=== PATIENT | male | born 1970 | race Caucasian/White ===

== ENCOUNTER 2016-10-11 19:36 | Emergency (ER) | payer BC ==
[2016-10-11 19:43] VITALS: BP 134/94; PULSE 98; TEMP 98.7; BMI 41.8
--- NOTE | 2016-10-11 19:49 | PDOC ---
History of Present Illness - General History Source: Patient Exam Limitations: No Limitations - History of Present Illness Initial Comments: 10/11/16 21:16 The patient is a 46 year old male, with a significant past medical history of gallstones, who presents to the emergency department with swelling in his left testicle and urinary urgency for the past two days. The patient reports that 2 days ago when he was urinating he felt that he could not empty his bladder and felt a pressure and bloating sensation in his suprapubic region. He states that he felt that his urine stream was blocked and sprayed in many different directions. He reports that yesterday he noticed that his left testicle was swollen and painful. The patient does note that the pain subsided last night but returned today at 2pm which prompted him to come into the emergency department. He denies any discharge from his penis. He denies chest pain, shortness of breath, headache and dizziness. He denies fever, chills, nausea, vomit, diarrhea and constipation. He denies dysuria and hematuria. PMH: chronic bronchitis, asthma, pneumonia Allergies: Penicillins Social history: Former smoker (quit 2.5 years ago) PCP: Dr. Rigoberto Lyman <Rebeca Nguyen - Last Filed: 10/11/16 21:16> <An Tan - Last Filed: 10/12/16 01:21> - General Chief Complaint: Edema Stated Complaint: TESTICULAR SWELLING Time Seen by Provider: 10/11/16 19:43 Past History <Rebeca Nguyen - Last Filed: 10/11/16 21:16> - Past Medical History Asthma: Yes (chronic bronchitis) COPD: Yes - Immunization History Immunization Up to Date: Yes - Psycho/Social/Smoking Cessation Hx Anxiety: No Suicidal Ideation: No Smoking Status: No Smoking History: Former smoker Have you smoked in the past 12 months: No Number of Cigarettes Smoked Daily: 2 Information on smoking cessation initiated: No Hx Alcohol Use: No Drug/Substance Use Hx: No Substance Use Type: Alcohol <An Tan - Last Filed: 10/12/16 01:21> - Past Medical History Allergies/Adverse Reactions: Allergies Allergy/AdvReac Type Severity Reaction Status Date / Time Penicillins AdvReac Mild Hives Verified 02/06/16 15:25 Home Medications: Ambulatory Orders Levofloxacin [Levaquin -] 500 mg PO DAILY #10 tablet 10/11/16 Rosuvastatin Calcium [Crestor] 10 mg PO DAILY 10/11/16 Review of Systems - Review of Systems Able to Perform ROS?: Yes Comments:: 10/11/16 21:16 CONSTITUTIONAL: Absent: fever, no chills, no fatigue EYES: Absent: visual changes ENT: Absent: ear pain, no sore throat CARDIOVASCULAR: Absent: chest pain, no palpitations RESPIRATORY: Absent: cough, no SOB GI:+pain and tenderness in abdomen Absent: abdominal pain, no nausea, no vomiting, no constipation, no diarrhea GENITOURINARY:+Urgency, +urinary pressure, +pain and swelling in left testicle Absent: dysuria, no frequency, no hematuria MUSCULOSKELETAL: Absent: back pain, no arthralgia, no myalgia SKIN: Absent: rash <Rebeca Nguyen - Last Filed: 10/11/16 21:16> *Physical Exam - Vital Signs Last Vital Signs Temp Pulse Resp BP Pulse Ox 98.7 F 98 H 18 134/94 100 10/11/16 19:41 10/11/16 19:41 10/11/16 19:41 10/11/16 19:41 10/11/16 19:41 - Physical Exam Comments: 10/11/16 21:17 GENERAL: The patient is awake, alert, and fully oriented, in no acute distress. HEAD: Normal with no signs of trauma. EYES: Pupils equal, round and reactive to light, extraocular movements intact, sclera anicteric, conjunctiva clear with no pallor. ENT: Ears normal, nares patent, oropharynx clear without exudates. Moist mucous membranes. NECK: Normal range of motion, supple without lymphadenopathy, JVD, or masses. LUNGS: Breath sounds equal, clear to auscultation bilaterally. No wheeze/ crackles. HEART: Regular rate and rhythm, normal S1 and S2 without murmur or rub. ABDOMEN: +Mild tenderness of the left lower quadrant without peritoneal signs or mass. +Mild supropublic tenderness BS wnl. No guarding or rebound. No palpable masses. No hepatosplenomegaly. EXTREMITIES: Normal range of motion, no edema. No clubbing or cyanosis. No cords, erythema, or tenderness. : Mild edema of the left side of the scrotum with tenderness of the testicle and epididymis without masses palpated. No penile lesions or urethral discharge evident. NEUROLOGICAL: Cranial nerves II through XII grossly intact. Normal speech, normal gait. PSYCH: Normal mood, normal affect. SKIN: Warm, Dry, normal turgor, no rashes or lesions noted. <Rebeca Nguyen - Last Filed: 10/11/16 21:16> - Vital Signs Last Vital Signs Temp Pulse Resp BP Pulse Ox 98.7 F 98 H 18 134/94 100 10/11/16 19:41 10/11/16 19:41 10/11/16 19:41 10/11/16 19:41 10/11/16 19:41 <An Tan - Last Filed: 10/12/16 01:21> ED Treatment Course - ADDITIONAL ORDERS Additional order review: Laboratory Results 10/11/16 20:18 Urine Color Yellow Urine Appearance Clear Urine pH 6.0 Ur Specific [place] 1.025 Urine Protein Negative Urine Glucose (UA) Negative Urine Ketones Negative Urine Blood Negative Urine Nitrite Negative Urine Bilirubin Negative Urine Urobilinogen 0.2 e.u/dl Ur Leukocyte Esterase Negative <Rebeca Nguyen - Last Filed: 10/11/16 21:16> Progress Note - Progress Note Progress Note: Documentation has been prepared under my direction and personally reviewed by me in its entirety. I attest that this documented accurately reflects all work, treatment, procedures and medical decision making performed by me. <An Tan - Last Filed: 10/12/16 01:21> Medical Decision Making - Medical Decision Making As noted above, this 46-year-old man presents with a few day history of progressive left-sided scrotal edema and tenderness. Patient has had a history of urinary frequency but no dysuria. There has not been hematuria or urethral discharge. No history of renal stone/STDs/previous scrotal pain or swelling. Exam shows marked tenderness of the epididymis on the left side. Ultrasound performed to rule out torsion. Ultrasound shows evidence of acute epididymitis on the left side without significant other pathology. Urinalysis shows no abnormality. Patient will be treated with Levaquin 500 mg for 10 days by mouth with first dose being given here in the emergency room Motrin 600 mg given for pain relief Patient will be discharged with instructions to return to the emergency room if swelling/pain worsens or if he develops fever. Meanwhile, he will continue Levaquin for full 10 days. He should plan to follow-up with urologist within the next several days. <An Tan - Last Filed: 10/12/16 01:21> *DC/Admit/Observation/Transfer - Attestations Scribe Attestion: 10/11/16 21:17 Documentation prepared by NAIMA Carr, acting as certified medical dosimetrist for An Tan MD. <Rebeca Nguyen - Last Filed: 10/11/16 21:16> <An Tan - Last Filed: 10/12/16 01:21> Diagnosis at time of Disposition: Epididymitis, left - Discharge Dispostion Disposition: HOME Condition at time of disposition: Stable - Prescriptions Prescriptions: Levofloxacin [Levaquin -] 500 mg PO DAILY #10 tablet - Referrals Referrals: Rigoberto Murcia MD [Primary Care Provider] - Gary Gallagher MD [Staff Physician] - - Patient Instructions Printed Discharge Instructions: DI for Epididymitis Additional Instructions: drink plenty of water cool compresses/scrotal elevation ibuprofen/naproxen/acetaminophen as needed for pain Levaquin 500mg daily for 10 days return to ER if pain/swelling worsens or you develop fever followup with urology(Dr. Frost group) within 1 week
[2016-10-11 20:30] LABS: URINE APPEARANCE Clear; URINE BILIRUBIN Negative (NEGATIVE); URINE BLOOD Negative (NEGATIVE); URINE GLUCOSE (UA) Negative (NEGATIVE); URINE KETONE Negative (NEGATIVE); URINE LEUK ESTERASE Negative (NEGATIVE); URINE NITRITE Negative (NEGATIVE); URINE PROTEIN Negative (NEGATIVE); URINE UROBILINOGEN 0.2 E.U/dl (0.2-1.0)
[2016-10-11 20:34] LABS: URINE COLOR YELLOW
[2016-10-11] MEDS ORDERED: IBUPROFEN 600 MG TABLET (FP) PO ONE ×2 (22:38→22:45)
[2016-10-11] MEDS ORDERED: LEVOFLOXACIN 500 MG TABLET (FP) PO ONE (22:38)
[2016-10-11] MEDS ORDERED: LEVOFLOXACIN 500 MG TABLET (FP) ONE (22:45)
== END 2016-10-11 22:48 | disposition home or self-care (01) ==
LOC: FER 19:36
DX: N45.1 Epididymitis (principal); J45.909 Unspecified asthma, uncomplicated; J44.9 Chronic obstructive pulmonary disease, unspecified; Z87.891 Personal history of nicotine dependence
CPT/HCPCS: 76870-TC; 81003; 99281-25

== ENCOUNTER 2016-11-02 16:20 | Emergency (ER) | payer BC ==
[2016-11-02 16:42] VITALS: BMI 41.6
[2016-11-02 17:24] VITALS: BP 124/91; PULSE 109; TEMP 97.9
[2016-11-02] MEDS ORDERED: SODIUM CHLORIDE 0.9% 500 ML INFUS.BAG IV ONE (18:08)
[2016-11-02] MEDS ORDERED: LEVOFLOXACIN 500 MG IVPB 100 ML IVPB ONE ×2 (18:09→18:18)
[2016-11-02] MEDS ORDERED: KETOROLAC TROMETHAMINE 30 MG/1 ML VIAL IVPUSH ONE (18:09)
--- NOTE | 2016-11-02 18:14 | PDOC ---
History of Present Illness <Bebeto Beavers - Last Filed: 11/02/16 21:14> - History of Present Illness Initial Comments: 11/02/16 18:13 46-year-old male with a past medical history of gallstones, and hyperlipidemia, and obesity He was seen in the emergency department on 10/11/16, and was diagnosed with acute epididymitis on the left side, without any other significant pathology He was treated with Levaquin, and his symptoms did resolve 2 days ago however he started developing left testicular pain again, with a slight penile discharge after urination He denies any hematuria He denies any fever or chills, but he states that he did have some sweats last night He did not follow-up with the urologist after his last bout of epididymitis He states that his symptoms today are similar to the prior symptoms except this time is a bit of a discharge which she did not last time He states that he is with his same partner and does not have a new partner, and she just had a "urinary tract infection", but did see her restaurant hourly manager, and had an STD screen which was negative He denies any flank pain He denies any other complaints and the remainder the review of systems is negative <Terri Rincon - Last Filed: 11/04/16 21:47> - General Chief Complaint: Pain, Acute Stated Complaint: LEFT TESTICLE PAIN Time Seen by Provider: 11/02/16 17:24 Past History <Bebeto Beavers - Last Filed: 11/02/16 21:14> - Past Medical History Asthma: Yes (chronic bronchitis) COPD: Yes Disorders: Yes (EPIDIDIMYTIS) - Immunization History Immunization Up to Date: Yes - Psycho/Social/Smoking Cessation Hx Anxiety: No Suicidal Ideation: No Smoking Status: No Smoking History: Former smoker Have you smoked in the past 12 months: No Number of Cigarettes Smoked Daily: 2 Information on smoking cessation initiated: No Hx Alcohol Use: Yes (SOCIAL) Drug/Substance Use Hx: No Substance Use Type: None <Terri Rincon - Last Filed: 11/04/16 21:47> - Past Medical History Allergies/Adverse Reactions: Allergies Allergy/AdvReac Type Severity Reaction Status Date / Time Penicillins Allergy Mild Hives Verified 11/02/16 16:35 Home Medications: Ambulatory Orders Rosuvastatin Calcium [Crestor] 10 mg PO DAILY 10/11/16 Doxycycline Hyclate [Vibratab -] 100 mg PO BID #19 tablet 11/02/16 Liraglutide [Saxenda] 2.4 mg SQ DAILY 11/02/16 Phentermine HCl [Adipex-P] 37.5 mg PO DAILY 11/02/16 *Physical Exam - Vital Signs Last Vital Signs Temp Pulse Resp BP Pulse Ox 97.9 F 109 H 16 124/91 100 11/02/16 16:21 11/02/16 16:21 11/02/16 16:21 11/02/16 16:21 11/02/16 16:21 <Bebeto Beavers - Last Filed: 11/02/16 21:14> - Vital Signs Last Vital Signs Temp Pulse Resp BP Pulse Ox 97.9 F 109 H 16 124/91 100 11/02/16 16:21 11/02/16 16:21 11/02/16 16:21 11/02/16 16:21 11/02/16 16:21 - Physical Exam Comments: 11/02/16 18:17 Physical exam Last Vital Signs Temp Pulse Resp BP Pulse Ox 97.9 F 109 H 16 124/91 100 11/02/16 16:21 11/02/16 16:21 11/02/16 16:21 11/02/16 16:21 11/02/16 16:21 GENERAL: The patient is awake, alert, and fully oriented, and in no apparent distress. HEAD: Normal with no signs of trauma. LUNGS: Breath sounds equal, clear to auscultation bilaterally. No wheezes, and no crackles. HEART: Regular rate and rhythm, normal S1 and S2 without murmur, rub or gallop. ABDOMEN: Soft, normal bowel sounds There is minimal left inguinal tenderness MALE GENITAL EXAM: Circumcised male without obvious penile discharge There is bilateral molluscum contagiosum on the scrotum There is left testicular and left epididymal tenderness There is no right testicular tenderness EXTREMITIES: Normal range of motion, no edema. No clubbing or cyanosis. No cords, erythema, or tenderness. NEUROLOGICAL: Cranial nerves II through XII grossly intact. Normal speech, normal gait. PSYCH: Normal mood, normal affect. SKIN: Warm, Dry, normal turgor, no rashes or lesions noted. <Terri Rincon - Last Filed: 11/04/16 21:47> ED Treatment Course - LABORATORY CBC & Chemistry Diagram: 11/02/16 18:30 11/02/16 18:30 - ADDITIONAL ORDERS Additional order review: Laboratory Results 11/02/16 11/02/16 20:00 18:30 Sodium 139 Potassium 3.8 Chloride 102 Carbon Dioxide 27 Anion Gap 10 BUN 10 Creatinine 0.9 Creat Clearance w eGFR > 60 Random Glucose 87 Calcium 9.6 Total Bilirubin 0.8 AST 23 ALT 32 Alkaline Phosphatase 46 Total Protein 7.7 Albumin 4.6 Urine Color Yellow Urine Appearance Clear Urine pH 5.5 Ur Specific [place] >= 1.030 H Urine Protein 1+ H Urine Glucose (UA) Negative Urine Ketones 1+ H Urine Blood Negative Urine Nitrite Negative Urine Bilirubin Negative Urine Urobilinogen 0.2 e.u/dl Ur Leukocyte Esterase Negative Urine RBC None seen Urine WBC 3-5 Ur Epithelial Cells 0-3 Urine Mucus 2+ 11/02/16 18:30 RBC 5.09 MCV 89.9 MCHC 35.3 RDW 11.2 L MPV 8.9 - Medications Given in the ED: ED Medications Discontinued Medications Generic Name Dose Route Start Last Admin Trade Name Ernestoq PRN Reason Stop Dose Admin Levofloxacin 100 mls @ 100 mls/hr 11/02/16 18:09 11/02/16 18:45 Levaquin 500 Mg Premixed Ivpb - IVPB 11/02/16 19:08 100 mls/hr ONCE ONE Administration Ketorolac Tromethamine 30 mg 11/02/16 18:09 11/02/16 18:30 Toradol Injection - IVPUSH 11/02/16 18:10 30 mg ONCE ONE Administration Sodium Chloride 1,000 ml 11/02/16 18:08 11/02/16 18:30 Normal Saline - IV 11/02/16 18:09 1,000 ml ONCE ONE Administration <Bebeto Beavers - Last Filed: 11/02/16 21:14> - LABORATORY CBC & Chemistry Diagram: 11/02/16 18:30 11/02/16 18:30 - RADIOLOGY Radiology Studies Ordered: Category Date Time Status SCROTUM AND CONTENTS US [US] Stat Ultrasound 11/02/16 16:32 Taken <Terri Rincon - Last Filed: 11/04/16 21:47> Medical Decision Making - Medical Decision Making 11/02/16 18:56 SIGN OUT Case discussed in detail with oncoming Emergency Physician including history, physical exam and ancillary studies. Oncoming Emergency Physician has assumed care for the patient and will complete the evaluation and treatment. Transfer of care to Dr. Beavers at 7 PM awaiting all studies and ultrasound Addendum EXAM#: TYPE/EXAM: RESULT: [id number] US/SCROTUM AND CONTENTS US HISTORY PROVIDED : Pain. Real time and doppler evaluation of the testes demonstrates the following: The testes are normal in size with the right testicle measuring 3.5 x 2.2 x 1.7 cm and the left testicle measuring 3.7 x 2.7 x 1.7 cm. They are normal in texture with no evidence of testicular masses. Normal arterial flow is seen within both testes no evidence of torsion. There is slight prominence and hypervascularity of the left epididymis and the possibility of epididymitis cannot be excluded. Clinical correlation is advised. There is no evidence of scrotal fluid collections. Small varicoceles are noted bilaterally. IMPRESSION: 1. No evidence of torsion or acute testicular pathology. 2. Possible mild left-sided epididymitis. Clinical correlation and follow-up recommended. Please see above discussion. Laboratory Tests 11/02/16 11/02/16 11/02/16 18:30 18:30 18:30 WBC 10.3 RBC 5.09 Hgb 16.1 Hct 45.7 MCV 89.9 MCHC 35.3 RDW 11.2 L Plt Count 216 MPV 8.9 Sodium 139 Potassium 3.8 Chloride 102 Carbon Dioxide 27 Anion Gap 10 BUN 10 Creatinine 0.9 Creat Clearance w eGFR > 60 Random Glucose 87 Calcium 9.6 Total Bilirubin 0.8 AST 23 ALT 32 Alkaline Phosphatase 46 Total Protein 7.7 Albumin 4.6 Urine Color Urine Appearance Urine pH Ur Specific [place] Urine Protein Urine Glucose (UA) Urine Ketones Urine Blood Urine Nitrite Urine Bilirubin Urine Urobilinogen Ur Leukocyte Esterase Urine RBC Urine WBC Ur Epithelial Cells Urine Mucus RPR Titer Nonreactive HIV 1&2 Antibody Screen HIV P24 Antigen 11/02/16 11/02/16 18:30 20:00 WBC RBC Hgb Hct MCV MCHC RDW Plt Count MPV Sodium Potassium Chloride Carbon Dioxide Anion Gap BUN Creatinine Creat Clearance w eGFR Random Glucose Calcium Total Bilirubin AST ALT Alkaline Phosphatase Total Protein Albumin Urine Color Yellow Urine Appearance Clear Urine pH 5.5 Ur Specific [place] >= 1.030 H Urine Protein 1+ H Urine Glucose (UA) Negative Urine Ketones 1+ H Urine Blood Negative Urine Nitrite Negative Urine Bilirubin Negative Urine Urobilinogen 0.2 e.u/dl Ur Leukocyte Esterase Negative Urine RBC None seen Urine WBC 3-5 Ur Epithelial Cells 0-3 Urine Mucus 2+ RPR Titer HIV 1&2 Antibody Screen Negative HIV P24 Antigen Negative <Terri Rincon - Last Filed: 11/04/16 21:47> *DC/Admit/Observation/Transfer <Bebeto Beavers - Last Filed: 11/02/16 21:14> <Terri Rincon - Last Filed: 11/04/16 21:47> Diagnosis at time of Disposition: Epididymitis, left - Discharge Dispostion Disposition: HOME Condition at time of disposition: Good - Prescriptions Prescriptions: Doxycycline Hyclate [Vibratab -] 100 mg PO BID #19 tablet - Referrals Referrals: Rigoberto Murcia MD [Primary Care Provider] - - Patient Instructions Printed Discharge Instructions: DI for Epididymitis Additional Instructions: Call for your culture results in 3 days: [phone]
[2016-11-02] MEDS ORDERED: KETOROLAC TROMETHAMINE 30 MG/1 ML VIAL ONE (18:17)
[2016-11-02 19:01] LABS: ALBUMIN 4.6 g/dl (3.5-5.0); ALK PHOS 46 U/L (32-92); ANION GAP 10 (8-16); BILIRUBIN,TOTAL 0.8 mg/dl (0.2-1.0); CALCIUM 9.6 mg/dl (8.4-10.2); CO2 27 mmol/L (22-28); COCKROFT - GAULT 161; CREATININE 0.9 mg/dl (0.6-1.3); GLUCOSE,RANDOM 87 mg/dl (74-106); MCH 31.7 pg (25.7-33.7); MCHC 35.3 g/dl (32.0-35.9); MEAN CELL VOLUME 89.9 fl (80-96); MEAN PLT VOLUME 8.9 fl (7.5-11.1); PLATELET COUNT 216 K/MM3 (134-434); RDW 11.2 % (11.9-15.9); SGOT/AST 23 U/L (10-42); SGPT/ALT 32 U/L (10-40); TOT PROT 7.7 g/dl (6.4-8.3); WHITE BLOOD COUNT 10.3 K/mm3 (4.0-10.8)
[2016-11-02 20:08] LABS: PH,URINE 5.5 (4.5-8); URINE APPEARANCE Clear; URINE BILIRUBIN Negative (NEGATIVE); URINE BLOOD Negative (NEGATIVE); URINE GLUCOSE (UA) Negative (NEGATIVE); URINE KETONE 1+ (NEGATIVE); URINE LEUK ESTERASE Negative (NEGATIVE); URINE NITRITE Negative (NEGATIVE); URINE UROBILINOGEN 0.2 E.U/dl (0.2-1.0)
[2016-11-02 20:09] LABS: URINE COLOR YELLOW; URINE PROTEIN 1+ (NEGATIVE)
[2016-11-02 20:14] LABS: HIV 1 & 2 AB NEGATIVE; HIV 1 AGp24 NEGATIVE
[2016-11-02 20:40] LABS: URINE RBC NONE SEEN /hpf (0-3)
[2016-11-02 20:41] LABS: URINE MUCUS 2+; URINE SPERM FEW
[2016-11-02] MEDS ORDERED: DOXYCYCLINE HYCLATE 100 MG CAPSULE PO ONE ×2 (21:13→21:20)
== END 2016-11-02 21:40 | disposition home or self-care (01) ==
LOC: FER 16:20
PROC: 3E02329 Introduction of Other Anti-infective into Muscle, Percutaneous Approach (ICD-10-PCS; principal; 2016-11-02)
PROC: 3E0333Z Introduction of Anti-inflammatory into Peripheral Vein, Percutaneous Approach (ICD-10-PCS; 2016-11-02)
PROC: 3E0337Z Introduction of Electrolytic and Water Balance Substance into Peripheral Vein, Percutaneous Approach (ICD-10-PCS; 2016-11-02)
DX: N45.1 Epididymitis (principal); Z87.891 Personal history of nicotine dependence; J44.9 Chronic obstructive pulmonary disease, unspecified
CPT/HCPCS: 36415; 76870-TC; 80053; 81003; 81015; 85027; 86593; 87086; 87389; 87491; 87591; 99282-25

== ENCOUNTER 2016-12-30 14:25 | Emergency (ER) | payer BC ==
[2016-12-30 14:31] VITALS: BMI 40.3
--- NOTE | 2016-12-30 14:31 | PDOC ---
Rapid Medical Evaluation Time Seen by Provider: 12/30/16 14:28 Medical Evaluation: Allergies Allergy/AdvReac Type Severity Reaction Status Date / Time Penicillins Allergy Mild Hives Verified 11/02/16 16:35 12/30/16 14:29 I have performed a brief in-person evaluation of this patient. The patient presents with a chief complaint of: "I've been bleeding in the rear " x4-5 days Pertinent physical exam findings: L/S CTAB Heart: RRR, S1 S2 The patient will proceed to the ED for further evaluation. Pt noticed dark red blood from rectum with slight dizziness x4-5 days. B/L lower back pain and feeling "bloated"
[2016-12-30 15:15] LABS: BASOPHIL 0.4 % (0-2.0); EOSINOPHIL 1.1 % (0-4.5); MCH 30.7 pg (25.7-33.7); MCHC 33.4 g/dl (32.0-35.9); MEAN CELL VOLUME 91.8 fl (80-96); MEAN PLT VOLUME 8.8 fl (7.5-11.1); NEUTROPHILS 64.2 % (42.8-82.8); PLATELET COUNT 216 K/MM3 (134-434); RDW 12.7 % (11.9-15.9); WHITE BLOOD COUNT 8.1 K/mm3 (4.0-10.0)
[2016-12-30 15:44] LABS: ALBUMIN 4.4 g/dl (3.4-5.0); ANION GAP 7 (8-16); CALCIUM 9.7 mg/dL (8.5-10.1); CO2 31 mmol/L (21-32); CREATININE 0.9 mg/dL (0.7-1.3); GLUCOSE,RANDOM 93 mg/dL (74-106); SGOT/AST 20 U/L (15-37); SGPT/ALT 41 U/L (12-78)
[2016-12-30 15:47] LABS: ALK PHOS 57 U/L (45-117); BILIRUBIN,TOTAL 0.6 mg/dL (0.2-1.0); TOT PROT 7.9 g/dl (6.4-8.2)
--- NOTE | 2016-12-30 15:49 | PDOC ---
History of Present Illness - General History Source: Patient, Old Records Exam Limitations: No Limitations - History of Present Illness Initial Comments: 12/30/16 15:54 The patient is a 46 year old male with a past medical history of COPD, who presents to the emergency department today with blood in stool for 3 days. The patient states that several days ago he was constipated and took metamucil to induce a bowel movement. He notes when he did have a bowel movement his stool was very dark and there was blood in the toilet bowel. He reports associated bilateral flank pain, epigastric pain, and mild nausea since last night. PAST MEDICAL HISTORY: COPD PAST SURGICAL HISTORY: No significant history reported FAMILY HISTORY: No pertinent history reported SOCIAL HISTORY: Quit smoking 3 years ago ALLERGIES: Penicillin MEDICATIONS: Reviewed <Jonathan Swan - Last Filed: 12/30/16 19:03> - General History Source: Patient, Old Records Exam Limitations: No Limitations <Kim Whyte - Last Filed: 12/30/16 19:05> - General Chief Complaint: Rectal Bleed Stated Complaint: Rectal Bleed Time Seen by Provider: 12/30/16 14:28 Past History <Jonathan Swan - Last Filed: 12/30/16 19:03> - Past Medical History Asthma: Yes (chronic bronchitis) COPD: Yes Disorders: Yes (EPIDIDIMYTIS) Hypercholesterolemia: Yes - Immunization History Immunization Up to Date: Yes - Psycho/Social/Smoking Cessation Hx Anxiety: No Suicidal Ideation: No Smoking Status: No Smoking History: Never smoked Have you smoked in the past 12 months: No Number of Cigarettes Smoked Daily: 2 Information on smoking cessation initiated: No Hx Alcohol Use: No Drug/Substance Use Hx: No Substance Use Type: None <Kim Whyte - Last Filed: 12/30/16 19:05> - Past Medical History Allergies/Adverse Reactions: Allergies Allergy/AdvReac Type Severity Reaction Status Date / Time Penicillins Allergy Mild Hives Verified 12/30/16 14:28 Home Medications: Ambulatory Orders NK [No Known Home Medication] 12/30/16 Review of Systems - Review of Systems Able to Perform ROS?: Yes Comments:: 12/30/16 15:54 CONSTITUTIONAL: Absent: fever, chills, diaphoresis, generalized weakness, malaise, loss of appetite HEENT: Absent: rhinorrhea, nasal congestion, throat pain, throat swelling, difficulty swallowing, mouth swelling, ear pain, eye pain, visual Changes CARDIOVASCULAR: Absent: chest pain, syncope, palpitations, irregular heart rate, lightheadedness , peripheral edema RESPIRATORY: Absent: cough, shortness of breath, dyspnea with exertion, orthopnea, wheezing, stridor, hemoptysis GASTROINTESTINAL: Present: hematochezia, epigastric pain, nausea Absent: abdominal pain, abdominal distension, vomiting, diarrhea, constipation, melena GENITOURINARY: Absent: dysuria, frequency, urgency, hesitancy, hematuria, flank pain, genital pain MUSCULOSKELETAL: Present: Flank pain Absent: myalgia, arthralgia, joint swelling SKIN: Absent: rash, itching, pallor HEMATOLOGIC/IMMUNOLOGIC: Absent: easy bleeding, easy bruising, lymphadenopathy, frequent infections ENDOCRINE: Absent: unexplained weight gain, unexplained weight loss, heat intolerance, cold intolerance NEUROLOGIC: Absent: headache, focal weakness or paresthesias, dizziness, unsteady gait, seizure, mental status changes, bladder or bowel incontinence PSYCHIATRIC: Absent: anxiety, depression, suicidal or homicidal ideation, hallucinations. <Jonathan Swan - Last Filed: 12/30/16 19:03> *Physical Exam - Vital Signs Last Vital Signs Temp Pulse Resp BP Pulse Ox 97.9 F 100 H 18 137/101 98 12/30/16 14:29 12/30/16 14:29 12/30/16 14:29 12/30/16 14:29 12/30/16 14:29 - Physical Exam Comments: 12/30/16 16:04 GENERAL: Well developed, well nourished. Awake and alert. In no acute distress. HEENT: Normocephalic, atraumatic. PERRLA, EOMI. No conjunctival pallor. Sclera are non- icteric. Moist mucous membranes. Oropharynx is clear. NECK: Supple. Full ROM. No JVD. Carotid pulses 2+ and symmetric, without bruits. No thyromegaly. No lymphadenopathy. CARDIOVASCULAR: Regular rate and rhythm. No murmurs, rubs, or gallops. Distal pulses are 2+ and symmetric. PULMONARY: No evidence of respiratory distress. Lungs clear to auscultation bilaterally. No wheezing, rales or rhonchi. ABDOMINAL: (+) Suprapubic and LLQ tenderness on plapation. Soft. Non-tender. Non- distended. No rebound or guarding. No organomegaly. Normoactive bowel sounds. MUSCULOSKELETAL Normal range of motion at all joints. No bony deformities or tenderness. No CVA tenderness. RECTAL: (+) Hemorrhoids EXTREMITIES: No cyanosis. No clubbing. No edema. No calf tenderness. SKIN: Warm and dry. Normal capillary refill. No rashes. No jaundice. NEUROLOGICAL: Alert, awake, appropriate. Cranial nerves 2-12 intact. No deficits to light touch and temperature in face, upper extremities and lower extremities. No motor deficits in the in face, upper extremities and lower extremities. Normoreflexic in the upper and lower extremities. Normal speech. Toes are downgoing bilaterally. Gait is normal without ataxia. PSYCHIATRIC: Cooperative. Good eye contact. Appropriate mood and affect. <Jonathan Swan - Last Filed: 12/30/16 19:03> - Vital Signs Last Vital Signs Temp Pulse Resp BP Pulse Ox 97.9 F 100 H 18 137/101 98 12/30/16 14:29 12/30/16 14:29 12/30/16 14:29 12/30/16 14:29 12/30/16 14:29 <Kim Whyte - Last Filed: 12/30/16 19:05> ED Treatment Course - LABORATORY CBC & Chemistry Diagram: 12/30/16 12:40 12/30/16 12:40 - ADDITIONAL ORDERS Additional order review: 12/30/16 12:40 RBC 4.98 MCV 91.8 MCHC 33.4 RDW 12.7 MPV 8.8 Neutrophils % 64.2 Lymphocytes % 25.5 Monocytes % 8.8 Eosinophils % 1.1 Basophils % 0.4 - RADIOLOGY Radiograph Interpretation: 12/30/16 18:27 EXAM#: TYPE/EXAM: RESULT: [id number] RAD/CHEST PA LAT Abdominal pain. Chest x- ray PA and lateral. Since prior chest x-ray dated 05/27/2015, the cardiac silhouette remains within normal limits in size. There are mild perihilar increased lung markings and mild elevation of the right hemidiaphragm. Mediastinum and visualized osseous osseous structures appear intact Impression: No acute cardiopulmonary disease is present. Reported By: Jn Hillman MD [id number] 12/30/16 19:03 EXAM#: TYPE/EXAM: RESULT: [id number] RAD/CHEST PA LAT Abdominal pain. Chest x- ray PA and lateral. Since prior chest x-ray dated 05/27/2015, the cardiac silhouette remains within normal limits in size. There are mild perihilar increased lung markings and mild elevation of the right hemidiaphragm. Mediastinum and visualized osseous osseous structures appear intact Impression: No acute cardiopulmonary disease is present. Reported By: Jn Hillman MD 1826 <Jonathan Swan - Last Filed: 12/30/16 19:03> - LABORATORY CBC & Chemistry Diagram: 12/30/16 12:40 12/30/16 12:40 - ADDITIONAL ORDERS Additional order review: 12/30/16 12:40 RBC 4.98 MCV 91.8 MCHC 33.4 RDW 12.7 MPV 8.8 Neutrophils % 64.2 Lymphocytes % 25.5 Monocytes % 8.8 Eosinophils % 1.1 Basophils % 0.4 <Kim Whyte - Last Filed: 12/30/16 19:05> Medical Decision Making - Medical Decision Making 12/30/16 15:48 46-year-old male with history of asthma/COPD who presents the emergency Department with complaints of 3 day history of blood in stool/blood bowel movements. Differential diagnosis includes but is not limited to: Hemorrhoid, AVM, diverticulosis, lower GI bleed. Plan: 1. Labs 2. Pain management 3. Rectal exam 4. Observe and reevaluate 12/30/16 19:03 Addendum: Labs were reviewed and are noted in the EMR. CT scan of the abdomen and pelvis is negative as is the stool for occult blood. Will discharge home. Follow-up with GI and return to the ED if Sx persist, worsen or new Sx arise. <Kim Whyte - Last Filed: 12/30/16 19:05> *DC/Admit/Observation/Transfer - Attestations Scribe Attestion: 12/30/16 16:05 Documentation prepared by Jonathan Swan, acting as medical technicians for Kim Whyte MD. <Jonathan Swan - Last Filed: 12/30/16 19:03> - Discharge Dispostion Admit: No - Attestations Physician Attestion: 12/30/16 15:49 I, Dr. Kim Whyte, attest that the scribes documentation that appears above has been prepared under my direction and personally reviewed by me in its entirety. I confirmed that the note above accurately reflects all work, treatment, procedures, and medical decision-making performed by me. <Kim Whyte - Last Filed: 12/30/16 19:05> Diagnosis at time of Disposition: Hematochezia - Discharge Dispostion Disposition: HOME Condition at time of disposition: Stable - Referrals Referrals: Rigoberto Murcia MD [Primary Care Provider] - - Patient Instructions Printed Discharge Instructions: DI for Hemorrhoids Additional Instructions: Please follow-up with your primary care physician within the next 3 days. Return to the ED if your symptoms persist, worsen or new symptoms arise.
[2016-12-30 16:18] LABS: URINE APPEARANCE CLEAR; URINE BILIRUBIN NEGATIVE (NEGATIVE); URINE BLOOD NEGATIVE (NEGATIVE); URINE COLOR YELLOW; URINE GLUCOSE (UA) NEGATIVE (NEGATIVE); URINE KETONE TRACE (NEGATIVE); URINE LEUK ESTERASE NEGATIVE (NEGATIVE); URINE NITRITE NEGATIVE (NEGATIVE); URINE PROTEIN NEGATIVE (NEGATIVE); URINE UROBILINOGEN NEGATIVE E.U./dl (0.2-1.0)
[2016-12-30] MEDS ORDERED: IBUPROFEN 400 MG TABLET (FP) PO ONE ×2 (18:38→19:11)
[2016-12-30 19:27] VITALS: BP 155/88; PULSE 88; TEMP 98
== END 2016-12-30 19:27 | disposition home or self-care (01) ==
LOC: JER 14:25
DX: K92.1 Melena (principal); J45.909 Unspecified asthma, uncomplicated; Z72.0 Tobacco use; E78.00 Pure hypercholesterolemia, unspecified; J44.9 Chronic obstructive pulmonary disease, unspecified
CPT/HCPCS: 36415; 71020-TC; 74176-TC; 80053; 81003; 82272; 85025; 99282-25

== ENCOUNTER 2023-10-29 11:03 | Emergency (ER) | payer BC ==
[2023-10-29] MEDS ORDERED: FAMOTIDINE 20 MG/50 ML IVPB 20 MG/50 ML MG IVPB ONE (12:04)
[2023-10-29] MEDS ORDERED: ONDANSETRON 4 MG/2 ML VIAL ONE (12:04)
[2023-10-29 12:23] VITALS: BMI 42.0
[2023-10-29 12:27] LABS: BASO % 0.3 % (0-2.0); HEMATOCRIT 47.8 % (35.4-49); HEMOGLOBIN 16.4 GM/dL (11.7-16.9); LYMPH % 8.4 % (8-40); MCH 31.3 pg (25.7-33.7); MCHC 34.3 g/dl (32.0-35.9); MEAN CELL VOLUME 91.2 fl (80-96); MEAN PLT VOLUME 8.1 fl (7.5-11.1); MONO % 18.2 % (3.8-10.2); NEUT % 72.1 % (42.8-82.8); PLATELET COUNT 201 10^3/uL (134-434); RBC 5.24 M/mm3 (4.00-5.60); RDW 12.6 % (11.9-15.9)
[2023-10-29] MEDS: FAMOTIDINE 20 MG/50 ML IVPB 20 MG/50 ML MG IVPB ONE (12:27)
[2023-10-29] MEDS: SODIUM CHLORIDE 0.9% 1000 ML INFUS.BAG IV ONE ×2 (12:27→14:17)
[2023-10-29] MEDS: ONDANSETRON 4 MG/2 ML VIAL IVPUSH ONE (12:27)
[2023-10-29] MEDS ORDERED: ALBUTEROL SO4 2.5/IPRATROPIUM 0.5 INH SOL 3 ML VIAL.NEB. NEB ONE (12:30)
[2023-10-29] MEDS: ALBUTEROL SO4 2.5/IPRATROPIUM 0.5 INH SOL 3 ML VIAL.NEB. NEB ONE (12:40)
[2023-10-29 12:41] LABS: POTASSIUM 3.3 mmol/L (3.5-5.1)
[2023-10-29 12:45] LABS: ALBUMIN 3.5 g/dl (3.4-5.0); BLOOD UREA NITROGEN 15.1 mg/dL (7-18); CALCIUM 9.2 mg/dL (8.5-10.1)
[2023-10-29 12:48] LABS: CREATININE 1.2 mg/dL (0.55-1.3)
[2023-10-29 12:50] LABS: BILIRUBIN,TOTAL 0.9 mg/dL (0.2-1); TOT PROT 7.5 g/dl (6.4-8.2)
[2023-10-29 13:20] VITALS: BP 101/61
[2023-10-29] MEDS ORDERED: POTASSIUM CHLORIDE TABS 20 MEQ TABLET.ER (FP) PO ONE (14:12)
[2023-10-29] MEDS: POTASSIUM CHLORIDE TABS 20 MEQ TABLET.ER (FP) PO ONE (14:17)
[2023-10-29 15:12] VITALS: PULSE 100; RESP 17; TEMP 99.2
== END 2023-10-29 15:43 | disposition home or self-care (01) ==
LOC: JER 11:03
PROC: 3E033GC Introduction of Other Therapeutic Substance into Peripheral Vein, Percutaneous Approach (ICD-10-PCS; principal; 2023-10-29)
PROC: 3E033GC Introduction of Other Therapeutic Substance into Peripheral Vein, Percutaneous Approach (ICD-10-PCS; 2023-10-29)
PROC: 3E0F7GC Introduction of Other Therapeutic Substance into Respiratory Tract, Via Natural or Artificial Opening (ICD-10-PCS; 2023-10-29)
DX: R11.2 Nausea with vomiting, unspecified (principal); R19.7 Diarrhea, unspecified; R05.9 Cough, unspecified; K52.9 Noninfective gastroenteritis and colitis, unspecified; Z20.822 Contact with and (suspected) exposure to COVID-19
CPT/HCPCS: 0241U-QW; 36415; 71046-TC-FY; 80053; 83690; 85025; 86618; 93005; 93010; 99285-25

== ENCOUNTER 2023-11-01 20:00 | Emergency (ER) | payer BC ==
[2023-11-01 20:14] VITALS: RESP 18; TEMP 98; BMI 42.0
[2023-11-01] MEDS ORDERED: ACETAMINOPHEN INJECTION 100 ML IVPB ONE (21:02)
[2023-11-01] MEDS ORDERED: ALBUTEROL SO4 2.5/IPRATROPIUM 0.5 INH SOL 3 ML VIAL.NEB. NEB ONE (21:02)
[2023-11-01] MEDS: ALBUTEROL SO4 2.5/IPRATROPIUM 0.5 INH SOL 3 ML VIAL.NEB. NEB SCH (21:15)
[2023-11-01] MEDS: LACTATED RINGERS SOLUTION 1000 ML INFUS.BAG IV ONE ×2 (21:27→23:00)
[2023-11-01] MEDS: ACETAMINOPHEN 1000 MG/100 ML BAG IVPB ONE (21:27)
[2023-11-01 21:32] LABS: HEMATOCRIT 43.6 % (35.4-49); HEMOGLOBIN 15.2 GM/dL (11.7-16.9); MCH 31.5 pg (25.7-33.7); MCHC 34.9 g/dl (32.0-35.9); MEAN CELL VOLUME 90.3 fl (80-96); MEAN PLT VOLUME 7.9 fl (7.5-11.1); PLATELET COUNT 296 10^3/uL (134-434); RBC 4.83 M/mm3 (4.00-5.60); RDW 12.5 % (11.9-15.9); WHITE BLOOD COUNT 10.4 K/mm3 (4.0-10.0)
[2023-11-01 21:33] LABS: PH,URINE 5.5 (5.0-8.0); URINE APPEARANCE CLEAR; URINE BILIRUBIN NEGATIVE (NEGATIVE); URINE COLOR YELLOW; URINE GLUCOSE (UA) NEGATIVE (NEGATIVE); URINE KETONE NEGATIVE (NEGATIVE); URINE LEUK ESTERASE NEGATIVE (NEGATIVE); URINE NITRITE NEGATIVE (NEGATIVE); URINE PROTEIN TRACE (NEGATIVE); URINE UROBILINOGEN 0.2 mg/dL (0.2-1.0)
[2023-11-01] MEDS ORDERED: methylPREDNISolone NA SUCC 125 MG/2 ML VIAL ONE (21:33)
[2023-11-01 21:44] LABS: INR 1.1 (0.83-1.09); PROTHROMBIN TIME (PATIENT) 12.7 SEC (9.7-13.0)
[2023-11-01] MEDS: methylPREDNISolone NA SUCC 125 MG/2 ML VIAL IVPUSH ONE (21:46)
[2023-11-01 21:47] LABS: ACTIVATED PTT 27.8 SECONDS (25.2-36.5)
[2023-11-01 21:48] LABS: POTASSIUM 3.3 mmol/L (3.5-5.1)
[2023-11-01 21:51] LABS: CALCIUM 8.6 mg/dL (8.5-10.1)
[2023-11-01 21:52] LABS: ALBUMIN 3.3 g/dl (3.4-5.0); MAGNESIUM 1.9 mg/dL (1.8-2.4)
[2023-11-01 21:55] LABS: CREATININE 1.1 mg/dL (0.55-1.3)
[2023-11-01 21:56] LABS: BILIRUBIN,TOTAL 0.3 mg/dL (0.2-1); TOT PROT 7.3 g/dl (6.4-8.2)
[2023-11-01 22:40] LABS: ANISOCYTOSIS 0; MACROCYTOSIS 0
[2023-11-01] MEDS ORDERED: POTASSIUM CHLORIDE ORAL LIQUID 20 MEQ/15 ML ONE (22:47)
[2023-11-01 22:53] VITALS: BP 110/63; PULSE 109
[2023-11-01] MEDS: POTASSIUM CHLORIDE ORAL LIQUID 20 MEQ/15 ML PO ONE (23:00)
[2023-11-01] MEDS ORDERED: metroNIDAZOLE 250 MG TABLET ONE (23:40)
[2023-11-01] MEDS: metroNIDAZOLE 250 MG TABLET PO ONE (23:50)
== END 2023-11-01 23:50 | disposition home or self-care (01) ==
LOC: JER 20:00
PROC: 3E033NZ Introduction of Analgesics, Hypnotics, Sedatives into Peripheral Vein, Percutaneous Approach (ICD-10-PCS; principal; 2023-11-01)
PROC: 3E033GC Introduction of Other Therapeutic Substance into Peripheral Vein, Percutaneous Approach (ICD-10-PCS; 2023-11-01)
PROC: 3E0F7GC Introduction of Other Therapeutic Substance into Respiratory Tract, Via Natural or Artificial Opening (ICD-10-PCS; 2023-11-01)
DX: K52.9 Noninfective gastroenteritis and colitis, unspecified (principal); E86.0 Dehydration; R63.0 Anorexia; R05.9 Cough, unspecified
CPT/HCPCS: 36415; 71045-TC-FY; 74177-TC; 80053; 81003; 83735; 85025; 85610; 85730; 87086; 93005; 93010; 99285-25; J0131; Q9967

== ENCOUNTER 2024-04-14 18:21 | Emergency (ER) | payer BC ==
[2024-04-14 18:35] VITALS: BP 127/84; PULSE 98; RESP 18; TEMP 98.6; BMI 43.7
[2024-04-14] MEDS ORDERED: ACETAMINOPHEN 325 MG TABLET (FP) ONE (19:36)
[2024-04-14] MEDS ORDERED: LIDOCAINE 5% TOPICAL PATCH ONE (19:36)
[2024-04-14] MEDS: ACETAMINOPHEN 500 MG TABLET (FP) PO ONE (19:54)
[2024-04-14] MEDS: LIDOCAINE 5% TOPICAL PATCH TP ONE (19:55)
[2024-04-14 20:09] LABS: BASO % 0.4 % (0-2.0); EOS % 0.8 % (0-4.5); HEMATOCRIT 44.1 % (35.4-49); LYMPH % 18.2 % (8-40); MCH 31.3 pg (25.7-33.7); MEAN CELL VOLUME 92.3 fl (80-96); MEAN PLT VOLUME 7.9 fl (7.5-11.1); MONO % 10.9 % (3.8-10.2); NEUT % 69.7 % (42.8-82.8); PLATELET COUNT 223 10^3/uL (134-434); RBC 4.78 M/mm3 (4.00-5.60); RDW 13.2 % (11.9-15.9); WHITE BLOOD COUNT 9.5 K/mm3 (4.0-10.0)
[2024-04-14] MEDS: SODIUM CHLORIDE 0.9% 500 ML INFUS.BAG IV ONE (20:13)
[2024-04-14 20:15] LABS: INR 1.05 (0.83-1.09); PROTHROMBIN TIME (PATIENT) 11.8 SEC (9.7-13.0)
[2024-04-14 20:18] LABS: ACTIVATED PTT 27.4 SECONDS (25.2-36.5)
[2024-04-14 20:27] LABS: POTASSIUM 4.5 mmol/L (3.5-5.1)
[2024-04-14 20:29] LABS: CALCIUM 9.4 mg/dL (8.5-10.1)
[2024-04-14 20:33] LABS: BILIRUBIN,TOTAL 0.9 mg/dL (0.2-1)
[2024-04-14 20:35] LABS: TOT PROT 7.6 g/dl (6.4-8.2)
[2024-04-14 20:44] LABS: EPI CELLS 7 /uL (0-25.1); HYALINE CASTS 0 /uL (0-3.1); URINE APPEARANCE CLEAR; URINE BACTERIA 6 /uL (0-1359); URINE BILIRUBIN NEGATIVE (NEGATIVE); URINE COLOR YELLOW; URINE GLUCOSE (UA) NEGATIVE (NEGATIVE); URINE KETONE TRACE (NEGATIVE); URINE LEUK ESTERASE NEGATIVE (NEGATIVE); URINE NITRITE NEGATIVE (NEGATIVE); URINE PROTEIN 1+ (NEGATIVE); URINE RBC 9 /uL (0-23.9); URINE WBC 15 /uL (0-25.8)
[2024-04-14 21:28] LABS: HIV INTERPRETATION NEGATIVE (NEGATIVE)
[2024-04-14] MEDS: LIDOCAINE PATCH REMOVAL MC SCH (22:04)
[2024-04-14] MEDS ORDERED: KETOROLAC TROMETHAMINE 15 MG/ML VIAL ONE (22:05)
[2024-04-14] MEDS: KETOROLAC TROMETHAMINE 15 MG/ML VIAL IVPUSH ONE (22:29)
== END 2024-04-14 23:30 | disposition home or self-care (01) ==
LOC: JER 18:21
PROC: 3E0333Z Introduction of Anti-inflammatory into Peripheral Vein, Percutaneous Approach (ICD-10-PCS; principal; 2024-04-14)
DX: M54.50 Low back pain, unspecified (principal); R30.0 Dysuria; Z20.822 Contact with and (suspected) exposure to COVID-19
CPT/HCPCS: 0241U-QW; 36415; 71045-TC-FY; 74176-TC; 80053; 81003; 84484; 85025; 85610; 85730; 86803; 87086; 87389; 93005; 93010; 99285-25